=== PATIENT | female | born 2005 | race Caucasian/White ===

== ENCOUNTER 2024-03-17 20:27 | Emergency (ER) | payer BC ==
[~2024-03-17] VITALS: Ht 172.7 cm; Wt 58.1 kg
[2024-03-17 22:46] LABS: BASOPHILS 0.9 % (0-2); EOSINOPHILS 2.2 % (0-6); HEMATOCRIT 37.7 % (35.0-50.0); HEMOGLOBIN 12.8 g/dL (12.0-18.0); LYMPHOCYTES 28.2 % (24-44); MCH 31.7 (27-36); MCHC 33.9 g/dl (30-36); MCV 93.4 fl (81-99); MONOCYTES 6.2 % (0-12); NEUTROPHILS 62.5 % (39-80); PLATELET COUNT 275 K/uL (140-440); RBC 4.03 M/ul (4.3-5.7); RDW 13.1 (10.5-15.0)
[2024-03-17] MEDS ORDERED: TRIAMCINOLONE A15 G3 TOP (22:58)
[2024-03-17 23:05] VITALS: BP 108/63
== END 2024-03-17 23:09 | disposition home or self-care (01) ==
LOC: ED 20:27
PROVIDERS: Family Medicine
DX: L30.8 Other specified dermatitis (principal)
CPT/HCPCS: 36415; 85025; 86140; 99283